=== PATIENT | female | born 1995 | race Caucasian/White ===

== ENCOUNTER 2025-01-20 11:21 | Emergency (ER) | payer MEDICAID ==
[~2025-01-20] VITALS: Ht 152.4 cm; Wt 60.0 kg
[2025-01-20 11:26] VITALS: O2SAT 99
[2025-01-20] MEDS ORDERED: HYDR28.485 RC (11:54)
[2025-01-20 12:05] VITALS: BP 116/78; PULSE 85; RESP 18; TEMP 37.2; O2SAT 99
== END 2025-01-20 12:06 | disposition home or self-care (01) ==
LOC: ER 11:21
DX: B34.1 Enterovirus infection, unspecified (principal)
CPT/HCPCS: 99282